=== PATIENT | male | born 1960 | race Caucasian/White ===

== ENCOUNTER → 2016-03-01 | Outpatient (CLI) | payer OTHER ==
[~2016-03-01] MED LIST: FLEXERIL10 MG PO; TYLENOL EXTRA500 MG PO
== END | disposition home or self-care (01) ==
LOC: EKG 13:00
DX: I27.2 Other secondary pulmonary hypertension (principal); R76.11 Nonspecific reaction to tuberculin skin test without active tuberculosis
CPT/HCPCS: 93306

== ENCOUNTER → 2016-03-07 | Outpatient (CLI) | payer OTHER | END | disposition home or self-care (01) | LOC: RAD 10:44 | DX: R76.11 Nonspecific reaction to tuberculin skin test without active tuberculosis (principal) | CPT/HCPCS: 71020 ==

== ENCOUNTER → 2016-09-01 | Outpatient (CLI) | payer SELFPAY | END | disposition home or self-care (01) | LOC: RAD 09:59 | DX: K40.90 Unilateral inguinal hernia, without obstruction or gangrene, not specified as recurrent (principal) | CPT/HCPCS: 76882 ==

== ENCOUNTER → 2016-10-07 | Outpatient (CLI) | payer SELFPAY | END | disposition home or self-care (01) | LOC: NUC 09-27 08:30 | DX: I44.7 Left bundle-branch block, unspecified (principal); I42.0 Dilated cardiomyopathy; I10 Essential (primary) hypertension; E11.9 Type 2 diabetes mellitus without complications; E78.2 Mixed hyperlipidemia | CPT/HCPCS: 78452; 93017; A9500; J2785 ==

== ENCOUNTER 2016-11-06 09:43 | Emergency (ER) | payer OTHER ==
[~2016-11-06] VITALS: Ht 172.7 cm; Wt 65.1 kg
[2016-11-06] MEDS ORDERED: BACTRIM,SEPT1 TABLET PO (12:53)
[2016-11-06 13:00] VITALS: BP 120/74
== END 2016-11-06 13:02 | disposition home or self-care (01) ==
LOC: EME 09:43
PROC: 3E0234Z Introduction of Serum, Toxoid and Vaccine into Muscle, Percutaneous Approach (ICD-10-PCS; principal; 2016-11-06)
DX: L03.114 Cellulitis of left upper limb (principal); S61.532A Puncture wound without foreign body of left wrist, initial encounter; X58.XXXA Exposure to other specified factors, initial encounter; H91.93 Unspecified hearing loss, bilateral; Z23 Encounter for immunization
CPT/HCPCS: 73130; 99281; 99283

== ENCOUNTER → 2016-11-18 | Outpatient (CLI) | payer SELFPAY ==
[~2016-11-18] MED LIST changes: +BACTRIM,SEPT1 TABLET PO
== END | disposition home or self-care (01) ==
LOC: EKG 11-07 13:00
DX: I70.0 Atherosclerosis of aorta (principal); I05.8 Other rheumatic mitral valve diseases; I06.1 Rheumatic aortic insufficiency; I07.1 Rheumatic tricuspid insufficiency; I31.3 Pericardial effusion (noninflammatory); J98.4 Other disorders of lung
CPT/HCPCS: 93306

== ENCOUNTER 2016-12-06 09:46 | Day surgery (SDC) | payer OTHER ==
[~2016-12-06] VITALS: Ht 172.7 cm; Wt 63.6 kg
[~2016-12-06 09:46] MED LIST changes: +COREG3.125 M1 PO; +CYMBALTA60 MG PO; +DESYREL100 MG PO; +FAMOTIDINE40 MG PO; +METFORMIN HCL500 MG PO; +PRAVACHOL40 MG PO; +PRIFTIN150 MG PO; +VITAMIN D31000 UNIT PO
[2016-12-06 10:27] LABS: MCHC 31.6 G/DL (30.0-36.0); MCV 91.7 FL (86-99); MEAN PLAT.VOLUME 9.4 uM^3 (9.0-12.4); PLATELET COUNT 257 K/uL (156-360); RBC DIS.WIDTH-CV 12.1 % (11.8-14.6); WHITE BLOOD COUNT 5.3 K/uL (4.1-10.2)
[2016-12-06 10:42] VITALS: BP 129/79
[2016-12-06 10:47] LABS: ADD MIUA? NO; BILIRUBIN NEGATIVE; BLOOD NEGATIVE; COLOR YELLOW ((YELLOW)); GLUCOSE (STRIP) NEGATIVE; KETONES NEGATIVE; LEUKOCYTES NEGATIVE; NITRITE NEGATIVE; PROTEIN (STRIP) NEGATIVE; SPECIFIC GRAVITY 1.015 (1.000-1.030); UROBILINOGEN 0.2 MG/DL (0.2-1.0)
[2016-12-06 10:49] LABS: ANION GAP 8 MEQ/L (2-14); CHLORIDE 105 MEQ/L (99-109); POTASSIUM 4.1 MEQ/L (3.7-5.4); SAMPLE HEMOLYSIS CHECK 0; SAMPLE ICTERIC CHECK 0; SAMPLE LIPEMIA CHECK 0; SODIUM 142 MEQ/L (136-147); TOTAL BILIRUBIN 0.4 MG/DL (0.0-1.0)
[2016-12-06 10:55] LABS: ALKALINE PHOSPHATASE 65 IU/L (3-129); GFR ESTIMATE (CALCULATED) > 59 mL/min/; GLUCOSE 104 mg/dL (70-99); UREA NITROGEN (BUN) 12 mg/dL (9-23)
[2016-12-06] MEDS ORDERED: PERCOCET 5/31 TABLET PO (14:17)
[2016-12-06] MEDS ORDERED: COLACE100 MG PO (14:17)
[2016-12-06 14:29] LABS: POINT-OF-CARE METER ID UU13113675
[2016-12-06 15:40] VITALS: BP 131/69
[2016-12-06 16:37] VITALS: BP 132/64
[2016-12-06 19:04] VITALS: BP 119/68
== END 2016-12-06 19:13 | disposition home or self-care (01) ==
LOC: SDC 09:46
PROVIDERS: Surgery
PROC: 0YU54JZ Supplement Right Inguinal Region with Synthetic Substitute, Percutaneous Endoscopic Approach (ICD-10-PCS; principal; 2016-12-06)
DX: K40.90 Unilateral inguinal hernia, without obstruction or gangrene, not specified as recurrent (principal); K41.90 Unilateral femoral hernia, without obstruction or gangrene, not specified as recurrent; I10 Essential (primary) hypertension; K21.9 Gastro-esophageal reflux disease without esophagitis; E11.9 Type 2 diabetes mellitus without complications; Z87.891 Personal history of nicotine dependence; Z88.0 Allergy status to penicillin
CPT/HCPCS: 80053; 81003; 82948; 85027; C1727; C1781; J1100; J1170; J2250; J2405; J2710; J2765; J3010